=== PATIENT | male | born 1975 | race Caucasian/White ===

== ENCOUNTER → 2017-06-03 | Outpatient (CLI) | payer SELFPAY ==
[~2017-06-03] VITALS: Ht 172.7 cm; Wt 99.8 kg
[~2017-06-03] MED LIST: CATHETER FLUSH 10 ML SYR IV PRN
[2017-06-03 09:22] VITALS: BP 108/67
--- NOTE | 2017-06-03 13:49 | STRESS TEST ---
DATE OF SERVICE: 06/03/2017 RESTING AND POST-EXERCISE TECHNETIUM-99 TETROFOSMIN SPECT/CT IMAGING ORDERING PHYSICIAN: Lucila Carranza APRN. PRIMARY PHYSICIAN: [facility]. Baseline images were carried out after injection of 10.61 mCi of technetium-99 Tetrofosmin. This was followed by exercise on a treadmill. Heart rate and blood pressure responses to exercise were normal. There was considerable baseline artifact with exercise. However, there does not appear to be significant ST segment depression in the immediate post-exercise phase. There was no significant arrhythmia. The patient tolerated the procedure fairly well. The test was stopped on account of fatigue and leg cramps. After he had attained more than 85% of maximum predicted heart rate, 30.3 mCi of technetium-99m Tetrofosmin were injected and the exercise was continued for another minute. The patient attained 92% of maximum predicted heart rate. He exercised for a total of 8 minutes and 5 seconds in the [place] protocol. He attained 9.7 METS of workload. Review of images at rest and following stress does not indicate any significant perfusion defects consistent with any significant myocardial ischemia or infarction. Gated images show well preserved global left ventricular systolic function without distinct regional wall motion abnormality. Left ventricular ejection fraction is calculated to be 53%. Left ventricular end diastolic volume is 90 mL. TID is absent (1.01). CONCLUSIONS: 1. No evidence of exercise-induced myocardial ischemia or arrhythmia. 2. No evidence of myocardial infarction. 3. Well preserved global left ventricular systolic function with a calculated ejection fraction of 53%. Job ID: [id number] DocumentID: [id number] Dictated Date: 06/03/2017 13:13:06 [employer] Date: 06/03/2017 13:48:45 Dictated By: SUN BARBER MD, MA, FACP, FACC,
== END ==
LOC: CARD 07:41
PROVIDERS: ATTEND Nurse Practitioner Family
DX: I10 Essential (primary) hypertension (principal); R07.89 Other chest pain
CPT/HCPCS: 78452; 93017; 93225; 93226; 93306